=== PATIENT | female | born 1990 | race Caucasian/White ===

== ENCOUNTER 2023-07-31 08:00 | Outpatient (CLI) | payer BC ==
[2023-07-31 16:47] LABS: BILIRUBIN,URINE NEGATIVE (NEGATIVE); GLUCOSE, URINE (UA) NEGATIVE (NEGATIVE); KETONES,URINE (UA) TRACE mg/dL (NEGATIVE); LEUKOCYTE ESTERASE, URINE NEGATIVE (NEGATIVE); NITRITE,URINE NEGATIVE (NEGATIVE); OCCULT BLOOD,URINE NEGATIVE (NEGATIVE); PROTEIN,URINE NEGATIVE (NEGATIVE); UROBILINOGEN,URINE 0.2 (NORMAL) E.U./dL (NORMAL)
[2023-07-31 16:51] LABS: CLARITY,URINE CLOUDY (CLEAR)
[2023-07-31 17:02] LABS: AMORPHOUS SEDIMENT,UR Marked /LPF; BACTERIA,URINE Rare /HPF (None Seen); RBC,URINE 0-5 /HPF (0-5); SQUAMOUS EPITHELIAL CELL,UR RARE Squamous (<= Few); WBC,URINE 0-3 /HPF (0-5)
== END 2023-07-31 23:59 | disposition home or self-care (01) ==
LOC: LAB.WC 08:00
PROVIDERS: ATTEND Obstetrics & Gynecology
DX: Z34.90 Encounter for supervision of normal pregnancy, unspecified, unspecified trimester (principal)
CPT/HCPCS: 81001; 87086

== ENCOUNTER 2023-08-11 15:32 | Outpatient (CLI) | payer BC ==
--- NOTE | 2023-08-11 16:21 | Ultrasound Report ---
PROCEDURE: OB 1st Trimester INDICATIONS: POSITIVE TEST OUTSIDE/PRIOR DATING DATA: Last menstrual period (LMP): 06/12/2023. LMP-based estimated date of delivery (CATHRYN): 03/18/2024. First dating scan (date and location): 08/11/2023. Estimated date of delivery (CATHRYN) from first dating scan: 03/19/2024. TECHNIQUE: Real-time scanning was performed of the fetus and maternal pelvic organs, with image documentation. COMPARISON: None. FINDINGS: Intrauterine gestational sac present. Embryo: Single living intrauterine gestation with estimated sonographic gestational age of approxima tely 8 weeks and 3 days based off crown-rump length measurement of approximately 1.91 cm. Normal yolk sac is seen. No perigestational hemorrhage. Heart rate: 173 bpm. Other: Maternal cervix is long and closed and appears visibly adequate. Measurement variability in dating: +/- 4 weeks by LMP, +/- 7 days by mean sac diameter (use before 6 weeks gestation if crown-rump length not able to be measured), +/- 5 days by crown-rump length (6-12 weeks gestation). Maternal organs: Left ovary appears unremarkable. Right ovary was not visualized on this exam. IMPRESSION: Single living intrauterine gestation with estimated sonographic gestational age of approximately 8 we eks and 3 days based off crown-rump length measurement. Estimated date of delivery is approximately 1 05/19/2023. Reviewed by: Claudio Delacruz MD on 08/11/2023 4:20 PM PDT Approved by: Claudio Delacruz MD on 08/11/2023 4:20 PM PDT Station ID: [id number]
== END 2023-08-11 15:33 | disposition home or self-care (01) ==
LOC: DI 15:32
PROVIDERS: ATTEND Obstetrics & Gynecology
DX: Z34.91 Encounter for supervision of normal pregnancy, unspecified, first trimester (principal)

== ENCOUNTER 2023-08-29 08:00 | Outpatient (CLI) | payer BC ==
[2023-08-29 19:22] LABS: CHLAMYDIA TRACHOMATIS DNA NEGATIVE (NEGATIVE); NEISSERIA GONORRHOEAE DNA NEGATIVE (NEGATIVE); TRICHOMONAS VAGINALIS DNA NEGATIVE (NEGATIVE)
== END 2023-08-29 23:59 | disposition home or self-care (01) ==
LOC: LAB.WC 08:00
PROVIDERS: ATTEND Obstetrics & Gynecology
DX: Z11.3 Encounter for screening for infections with a predominantly sexual mode of transmission (principal)
CPT/HCPCS: 87491; 87591; 87661

== ENCOUNTER 2023-09-16 09:47 | Outpatient (CLI) | payer BC ==
[2023-09-16 15:10] LABS: BASOPHILS % (AUTO) 0.4 %; EOSINOPHILS # (AUTO) 0.1 10^3/uL (0.0-0.7); EOSINOPHILS % (AUTO) 1.4 %; HGB - HEMOGLOBIN 12.7 g/dL (12.0-16.0); LYMPHOCYTES # (AUTO) 1.2 10^3/uL (1.5-3.5); LYMPHOCYTES % (AUTO) 23.5 %; MEAN CORPUSCULAR HEMOGLOBIN 28.8 pg (27.0-31.0); MEAN CORPUSCULAR HGB CONC 32.6 g/dL (32.0-36.0); MEAN CORPUSCULAR VOLUME 88.4 fL (81.0-99.0); MEAN PLATELET VOLUME 10.5 fL (7.9-10.8); MONOCYTES # (AUTO) 0.4 10^3/uL (0.0-1.0); MONOCYTES % (AUTO) 6.9 %; NEUTROPHILS # (AUTO) 3.5 10^3/uL (1.5-6.6); NEUTROPHILS % (AUTO) 67.6 %; PLT - PLATELET COUNT 217 10^3/uL (130-450); RED BLOOD COUNT 4.41 10^6/uL (4.20-5.40); RED CELL DISTRIBUTION WIDTH 12.3 % (12.0-15.0); WHITE BLOOD COUNT 5.1 x10^3/uL (4.8-10.8)
[2023-09-17 07:10] LABS: HBsAG SCREEN Negative (Negative); HIV SCREEN 4TH GENERATION Non Reactive (Non Reactive); RPR Non Reactive (Non Reactive)
[2023-09-17 09:10] LABS: VARICELLA-ZOSTER AB IGG 546 index (Immune >165)
[2023-09-18 01:08] LABS: HCV AB Non Reactive (Non Reactive)
== END 2023-09-16 09:48 | disposition home or self-care (01) ==
LOC: LAB.S 09:47
PROVIDERS: ATTEND Obstetrics & Gynecology
DX: Z34.90 Encounter for supervision of normal pregnancy, unspecified, unspecified trimester (principal)
CPT/HCPCS: 36415; 82950; 85025; 86592; 86762; 86787; 86803; 86850; 86900; 86901; 87340; 87389

== ENCOUNTER 2023-11-12 08:49 | Outpatient (CLI) | payer BC ==
--- NOTE | 2023-11-12 18:04 | Ultrasound Report ---
PROCEDURE: OB Anatomy Scan INDICATIONS: SUPERVISION OF OUTSIDE/PRIOR DATING DATA: Last menstrual period (LMP): 06/12/2023. LMP-based estimated date of delivery (CATHRYN): 03/18/2024. The below data below was generated using the clinical CATHRYN of 03/18/2024 TECHNIQUE: Real-time scanning was performed of the fetus, with image documentation and biometric measurements. Endovaginal scanning: Not performed. COMPARISON: None. FINDINGS: General: A single living intrauterine gestation is present. Presentation: Breech Placenta: Placental position is anterior, without previa. Amniotic fluid index: 15.6 cm, within normal limits for gestational age. heart rate: 131 beats per minute. Maternal cervical canal: 5.4 cm long; normal length is 2.5 cm or more. biometrics: Biparietal diameter: 5.1 cm, 21 weeks 3 days, 28 percentile Head circumference: 19.5 cm, 21 weeks 5 days, 31 percentile Abdominal circumference: 17.6 cm, 22 weeks 4 days, 64 percentile Femur length: 3.7 cm, 21 weeks 6 days, 38 percentile Estimated gestational age from initial scan: 21 weeks 6 days Composite gestational age from present scan: 21 weeks 6 days based Estimated weight and percentile: 477 g, 57th percentile Measurement variability in biometric dating: +/- 10 days from 12-20 weeks gestation, +/- 2 weeks from 20-30 weeks gestation, +/- 3 weeks at 30 weeks gestation or later. Anatomic survey: Neuro: Ventricles are normal at less than 10 mm. Cisterna magna is normal at 3-11 mm. Cerebellum i s normal in size and morphology. Nuchal skin fold: Normal at less than 6 mm between 14 and 20 weeks gestational age. Face: Nose and lips, facial profile are normal. Spine: No evidence for spina bifida. Heart: 4-chambered heart is present, with normal ventricular outflow tracts. Diaphragm: Diaphragm is intact. Stomach: Left-sided stomach is present. Kidneys: No hydronephrosis. Normal is less than 5 mm in 2nd trimester, less than 7 mm in 3rd trimester. Cord: 3 vessel cord has orthotopic insertion. Bladder: Normal in size. Extremities: All 4 extremities are visualized. IMPRESSION: Single living intrauterine at 21 weeks 6 days, CATHRYN of 03/18/2024. Normal anatomy survey. Estimated weight of 477 g, 57th percentile. Reviewed by: Nathaniel Dukes MD on 11/12/2023 5:03 PM [facility] Approved by: Nathaniel Dukes MD on 11/12/2023 5:03 PM [facility] Station ID: [id number]
== END 2023-11-12 08:50 | disposition home or self-care (01) ==
LOC: DI 08:49
PROVIDERS: ATTEND Obstetrics & Gynecology
DX: Z34.92 Encounter for supervision of normal pregnancy, unspecified, second trimester (principal)

== ENCOUNTER 2023-12-30 08:45 | Outpatient (CLI) | payer BC ==
[2023-12-30 10:10] LABS: HCT - HEMATOCRIT 36.7 % (37.0-47.0); MEAN CORPUSCULAR HEMOGLOBIN 30.2 pg (27.0-31.0); MEAN CORPUSCULAR HGB CONC 32.7 g/dL (32.0-36.0); MEAN CORPUSCULAR VOLUME 92.2 fL (81.0-99.0); MEAN PLATELET VOLUME 9.5 fL (7.9-10.8); RED BLOOD COUNT 3.98 10^6/uL (4.20-5.40); RED CELL DISTRIBUTION WIDTH 13.5 % (12.0-15.0); WHITE BLOOD COUNT 8.1 x10^3/uL (4.8-10.8)
[2023-12-31 07:10] LABS: RPR Non Reactive (Non Reactive)
== END 2023-12-30 08:46 | disposition home or self-care (01) ==
LOC: LAB 08:45
PROVIDERS: ATTEND Obstetrics & Gynecology
DX: O36.60X0 Maternal care for excessive fetal growth, unspecified trimester, not applicable or unspecified (principal)
CPT/HCPCS: 36415; 82950; 85027; 86592